=== PATIENT | female | born 1995 | race African-American/Black ===

== ENCOUNTER 2017-07-08 12:00 | Emergency (ER) | payer MEDICAID, OTHER ==
[~2017-07-08] VITALS: Ht 160 cm; Wt 65.0 kg
[~2017-07-08 12:00] MED LIST: NON COMPLIANT
[2017-07-08 13:17] LABS: BASOPHILS % 0.6 % (0.0-2.0); EOSINOPHILS % 0.7 % (0.0-5.0); HEMATOCRIT. 29.2 % (36.0-48.0); HEMOGLOBIN. 9.8 g/dL (12.0-16.0); LYMPHOCYTES % 25.6 % (20.0-50.0); MEAN CORPUSCULAR HEMOGLOBIN 30.3 pg (28.0-32.0); MEAN PLATELET VOLUME 8.5 fl (7.4-10.4); MONOCYTES % 5.9 % (2.0-8.0); NEUTROPHILS % 67.2 % (40.0-76.0); PLATELET 186 x1000/uL (130-400); RED BLOOD CELL COUNT 3.24 mill/uL (4.2-5.4); RED CELL DISTRIBUTION WIDTH 13.4 % (11.6-14.6)
[2017-07-08 13:31] LABS: CARBON DIOXIDE 23 mEq/L (21-32); CHLORIDE 108 mEq/L (98-107)
[2017-07-08 14:28] VITALS: BP 91/61
== END 2017-07-08 14:30 | disposition home or self-care (01) ==
LOC: ER 12:48
DX: Z3A.00 Weeks of gestation of pregnancy not specified (principal); O15.9 Eclampsia, unspecified as to time period; G40.909 Epilepsy, unspecified, not intractable, without status epilepticus; Z91.14 Patient's other noncompliance with medication regimen; Z98.890 Other specified postprocedural states
CPT/HCPCS: 36415; 80048; 85025; 99284

== ENCOUNTER 2025-06-19 20:30 | Emergency (ER) | payer MEDICAID, OTHER ==
[~2025-06-19] VITALS: Ht 165.1 cm; Wt 68.0 kg
[2025-06-19 20:36] VITALS: O2SAT 99
[2025-06-19 23:05] VITALS: BP 103/57; PULSE 95; RESP 22; TEMP 37.2; O2SAT 100
[2025-06-19] MEDS ORDERED: KEPP250 MT (23:08)
[2025-06-19] MEDS ORDERED: LAM2 MT (23:19)
[2025-06-20] MEDS ORDERED: KEPP250 PO (15:02)
[2025-06-20] MEDS ORDERED: LAMO200T9 MT (22:00)
== END 2025-06-19 23:35 | disposition home or self-care (01) ==
LOC: ER 20:30
DX: G40.909 Epilepsy, unspecified, not intractable, without status epilepticus (principal); F12.10 Cannabis abuse, uncomplicated; Z98.890 Other specified postprocedural states
CPT/HCPCS: 99283

== ENCOUNTER 2025-06-19 23:51 | Inpatient (IN) | payer MEDICAID ==
[~2025-06-19] VITALS: Ht 154.9 cm; Wt 68.0 kg
[~2025-06-19 23:51] MED LIST changes: +KEPP250 MT; +LAM2 MT
[2025-06-20] MEDS: LEVETIRACETAM 1000MG PREMIX 100 ML IV ONE (00:31)
[2025-06-20 01:09] LABS: BASOPHILS % 1.0 % (0.0-2.0); EOSINOPHILS % 0.4 % (0.0-5.0); HEMATOCRIT. 41.6 % (36.0-48.0); HEMOGLOBIN. 13.5 g/dL (12.0-16.0); LYMPHOCYTES % 21.6 % (20.0-50.0); MEAN PLATELET VOLUME 8.7 fl (7.4-10.4); MONOCYTES % 2.8 % (2.0-8.0); NEUTROPHILS % 74.2 % (40.0-76.0); PLATELET 296 x1000/uL (130-400); RED BLOOD CELL COUNT 4.38 mill/uL (4.2-5.4); RED CELL DISTRIBUTION WIDTH 14.0 % (11.6-14.6)
[2025-06-20 01:22] LABS: INR 1.0
[2025-06-20 01:26] LABS: CREATININE 1.0 mg/dL (0.6-1.0); UREA NITROGEN BLOOD 11 mg/dL (9-23)
[2025-06-20 01:27] LABS: ETHANOL BLOOD < 10 mg/dL (<10); TROPONIN I HIGH SENSITIVITY < 4 ng/L (3.0-34)
[2025-06-20 01:28] LABS: ASPARTATE AMINOTRANSFERASE 28 IU/L (<34); BILIRUBIN DIRECT < 0.1 mg/dL (<=3.0)
[2025-06-20 01:29] LABS: BILIRUBIN TOTAL 0.3 mg/dL (0.1-1.0); PROTEIN TOTAL 7.2 g/dL (6.0-8.3)
[2025-06-20 01:31] LABS: HCG SCREEN NEGATIVE
[2025-06-20] MEDS ORDERED: CLONIDINE 0.1MG TABLET PO PRN (01:45)
[2025-06-20] MEDS ORDERED: IPRATROPIUM/ALBUTEROL 0.5-3(2.5)MG/3ML NEB HHN PRN (01:45)
[2025-06-20] MEDS ORDERED: ONDANSETRON HCL 4MG/2ML INJ IV PRN (01:45)
[2025-06-20] MEDS ORDERED: GUAIFENESIN 200MG/10ML SUGAR FREE UDC PO PRN (01:45)
[2025-06-20] MEDS ORDERED: ACETAMINOPHEN 325MG TABLET PO PRN (01:45)
[2025-06-20] MEDS ORDERED: DOCUSATE SODIUM 100MG CAPSULE PO PRN (01:45)
[2025-06-20] MEDS: ACETAMINOPHEN 325MG TABLET PO NR (01:46)
[2025-06-20 02:38] LABS: CLARITY URINE CLEAR (CLEAR); COLOR URINE YELLOW (YELLOW); GLUCOSE URINE NEGATIVE (NEGATIVE); KETONES URINE TRACE (NEGATIVE); LEUKOCYTE ESTERASE URINE NEGATIVE (NEGATIVE); NITRITE URINE NEGATIVE (NEGATIVE); OCCULT BLOOD URINE TRACE (NEGATIVE); PH URINE 6.5 (4.5-8.0); PROTEIN URINE TRACE (NEGATIVE); SPECIFIC GRAVITY URINE 1.017 (1.005-1.030); UROBILINOGEN URINE 1.0 E.U./dL (0.2-1.0)
[2025-06-20 02:43] LABS: *AMPHETAMINES SCREEN URINE NEGATIVE (NEGATIVE); *BARBITURATES SCREEN URINE NEGATIVE (NEGATIVE); *BENZODIAZEPINES SCREEN URINE NEGATIVE (NEGATIVE); *COCAINE SCREEN URINE NEGATIVE (NEGATIVE); CANNABINOID URINE SCREEN PRESUMPTIVE POSITIVE (NEGATIVE); ECSTASY MDMA SCREEN URINE NEGATIVE (NEGATIVE); METHADONE URINE SCREEN NEGATIVE (NEGATIVE); OPIATES URINE SCREEN NEGATIVE (NEGATIVE); PHENCYCLIDINE URINE SCREEN NEGATIVE (NEGATIVE)
[2025-06-20 03:07] LABS: RBC URINE 0-2 /hpf (0-2); WBC URINE 0-2 /hpf (0-2)
[2025-06-20 03:08] LABS: SQUAMOUS EPITHELIAL CELL URINE FEW /lpf (RARE/1+)
[2025-06-20 03:21] LABS: BACTERIA URINE NONE SEEN
[2025-06-20 03:23] VITALS: BP 112/62; PULSE 101; RESP 20; TEMP 36.5292
[2025-06-20 04:29] VITALS: BP 112/62; PULSE 101; RESP 20; TEMP 36.5; O2SAT 99
[2025-06-20] MEDS: PANTOPRAZOLE 40MG DR TABLET PO SCH (06:29)
[2025-06-20] MEDS ORDERED: SODIUM CHLORIDE 0.9% 1,000 ML IV ONE (08:59)
[2025-06-20] MEDS: LEVETIRACETAM 250MG TABLET PO SCH (10:09)
[2025-06-20 12:00] VITALS: BP 119/71; PULSE 101; RESP 18; TEMP 36.9; O2SAT 100
[2025-06-20 13:57] LABS: CLARITY URINE CLEAR (CLEAR); COLOR URINE YELLOW (YELLOW); GLUCOSE URINE NEGATIVE (NEGATIVE); KETONES URINE NEGATIVE (NEGATIVE); LEUKOCYTE ESTERASE URINE NEGATIVE (NEGATIVE); NITRITE URINE NEGATIVE (NEGATIVE); OCCULT BLOOD URINE 2+ (NEGATIVE); PH URINE 6.0 (4.5-8.0); PROTEIN URINE NEGATIVE (NEGATIVE); SPECIFIC GRAVITY URINE 1.021 (1.005-1.030); UROBILINOGEN URINE 0.2 E.U./dL (0.2-1.0)
[2025-06-20 14:32] LABS: BACTERIA URINE TRACE; MUCUS URINE TRACE /lpf (< = 2+); SQUAMOUS EPITHELIAL CELL URINE 1+ /lpf (RARE/1+)
[2025-06-20 14:33] LABS: RBC URINE 0-2 /hpf (0-2); WBC URINE 0-2 /hpf (0-2)
[2025-06-20] MEDS ORDERED: KEPP250 PO (15:02)
[2025-06-20 15:20] VITALS: BP 119/71; PULSE 101; TEMP 98.4; O2SAT 96
[2025-06-20] MEDS ORDERED: LAMO200T9 MT (22:00)
== END 2025-06-20 15:55 | disposition home or self-care (01) | DRG 53 ==
LOC: ER 23:51 → EDBEDREQTM 06-20 01:04 → EDBEDREQ 06-20 01:04 → ENRESERV 06-20 02:31 → 6WST 06-20 04:30
PROVIDERS: ADMIT Internal Medicine; ATTEND Internal Medicine
DX: G40.409 Other generalized epilepsy and epileptic syndromes, not intractable, without status epilepticus (principal); E87.20 Acidosis, unspecified; F12.10 Cannabis abuse, uncomplicated; R73.9 Hyperglycemia, unspecified; Z79.899 Other long term (current) drug therapy; Z91.199 Patient's noncompliance with other medical treatment and regimen due to unspecified reason; Z98.891 History of uterine scar from previous surgery
CPT/HCPCS: 36415; 71045; 80048; 80076; 80305; 80320; 81003; 82550; 83036; 84484; 84703; 85025; 93005; 99291; A4606; J1953; J2060; G0480

== ENCOUNTER 2025-06-20 21:23 | Emergency (ER) | payer MEDICAID ==
[~2025-06-20 21:23] MED LIST changes: -KEPP250 MT; +KEPP250 PO
[2025-06-20] MEDS ORDERED: LAMO200T9 MT (22:00)
[2025-06-20] MEDS: LAMOTRIGINE 100MG TABLET PO SCH (22:13)
[2025-06-20 22:22] VITALS: BP 146/90; PULSE 87; RESP 19; TEMP 36.7; O2SAT 99
== END 2025-06-20 22:32 | disposition home or self-care (01) ==
LOC: ER 21:23
DX: R56.9 Unspecified convulsions (principal); F12.90 Cannabis use, unspecified, uncomplicated; Z76.0 Encounter for issue of repeat prescription; Z98.890 Other specified postprocedural states
CPT/HCPCS: 99281; 99283

== ENCOUNTER 2025-06-26 14:06 | Emergency (ER) | payer MEDICAID ==
[~2025-06-26] VITALS: Ht 160 cm; Wt 69.0 kg
[~2025-06-26 14:06] MED LIST changes: +LAMO200T9 MT
[2025-06-26 14:17] VITALS: O2SAT 96
[2025-06-26] MEDS: DEXAMETHASONE 4MG TABLET PO ONE (15:01)
[2025-06-26] MEDS: IBUPROFEN 400MG TABLET PO ONE (15:01)
[2025-06-26] MEDS ORDERED: IBUP-2028 MT (17:22)
[2025-06-26] MEDS ORDERED: PENI500T MT (17:22)
[2025-06-26 17:36] VITALS: BP 129/82; PULSE 94; RESP 18; TEMP 37.1; O2SAT 100
== END 2025-06-26 17:50 | disposition home or self-care (01) ==
LOC: ER 14:19
DX: J02.0 Streptococcal pharyngitis (principal); Z98.890 Other specified postprocedural states
CPT/HCPCS: 99283; 81025; 87430; J8540

== ENCOUNTER 2025-07-06 23:03 | Emergency (ER) | payer MEDICAID ==
[~2025-07-06] VITALS: Ht 154.9 cm; Wt 68.0 kg
[~2025-07-06 23:03] MED LIST changes: +IBUP-2028 MT; +PENI500T MT
[2025-07-06 23:46] VITALS: TEMP 36.9; O2SAT 98
[2025-07-07] MEDS: LEVETIRACETAM 250MG TABLET PO ONE (00:38)
[2025-07-07] MEDS: LAMOTRIGINE 100MG TABLET PO SCH (00:39)
[2025-07-07 00:43] VITALS: BP 117/74; PULSE 91; RESP 16; O2SAT 96
[2025-07-07] MEDS ORDERED: LAMO300T MT (00:44)
[2025-07-07] MEDS ORDERED: LAM15 MT (00:44)
[2025-07-07] MEDS ORDERED: KEPP250 MT (00:44)
== END 2025-07-07 01:03 | disposition home or self-care (01) ==
LOC: ER 23:11
DX: R56.9 Unspecified convulsions (principal); Z76.0 Encounter for issue of repeat prescription; Z79.899 Other long term (current) drug therapy
CPT/HCPCS: 99281; 99283

== ENCOUNTER 2025-07-20 20:55 | Emergency (ER) | payer MEDICAID ==
[~2025-07-20] VITALS: Ht 154.9 cm; Wt 70.2 kg
[~2025-07-20 20:55] MED LIST changes: +KEPP250 MT; +LAM15 MT; +LAMO300T MT
[2025-07-20 21:02] VITALS: BP 117/73; TEMP 37.1; O2SAT 100
[2025-07-20 21:09] VITALS: PULSE 94; RESP 16; O2SAT 98
[2025-07-20] MEDS ORDERED: LEVE750T35 MT (21:20)
== END 2025-07-20 22:29 | disposition home or self-care (01) ==
LOC: ER 20:55
DX: R56.9 Unspecified convulsions (principal); Z76.0 Encounter for issue of repeat prescription; Z79.899 Other long term (current) drug therapy; Z98.890 Other specified postprocedural states
CPT/HCPCS: 99281

== ENCOUNTER 2025-11-20 13:18 | Emergency (ER) | payer SELFPAY ==
[~2025-11-20] VITALS: Ht 162.6 cm; Wt 67.0 kg
[~2025-11-20 13:18] MED LIST changes: +LEVE750T35 MT
[2025-11-20 13:25] VITALS: O2SAT 98
[2025-11-20 15:30] VITALS: BP 114/52; PULSE 81; RESP 17; TEMP 37.1; O2SAT 98
[2025-11-20] MEDS ORDERED: LEVE750T35 MT (15:34)
[2025-11-20] MEDS ORDERED: LAM2 MT (15:34)
== END 2025-11-20 15:31 | disposition home or self-care (01) ==
LOC: ER 13:18
DX: R56.9 Unspecified convulsions (principal); Z76.0 Encounter for issue of repeat prescription; Z79.899 Other long term (current) drug therapy; Z98.890 Other specified postprocedural states
CPT/HCPCS: 99282